=== PATIENT | female | born 1950 | race Caucasian/White ===

== ENCOUNTER 2024-09-25 20:06 | Inpatient (IN) | payer MEDICARE, BC ==
[2024-09-25] MEDS: Albuterol 0.083% 2.5 MG/3 ML Neb Soln NEB ONE (20:25)
[2024-09-25] MEDS ORDERED: Sodium Chloride 0.9% 10 ML Syringe FLUSH PRN (20:28)
[2024-09-25 20:46] LABS: MEAN PLATELET VOLUME 9.9 fL (6.0-10.0); PLATELET COUNT,PLT 286.0 K/uL (150-500); RED BLOOD CELL COUNT 3.61 M/uL (3.80-5.80); RED CELL DISTRIBUTION WIDTH 12.4 % (11.0-16.0); WHITE BLOOD CELL COUNT,WBC 11.2 K/uL (4.0-11.0)
[2024-09-25 21:10] LABS: BLOOD UREA NITROGEN,BUN 17.0 mg/dL (8-26); CARBON DIOXIDE,CO2 28.1 mmol/L (21.0-32.0); CREATININE 0.79 mg/dL (0.55-1.02); EST CRCL DRUG DOSING (CG) 56.4 mL/min; ESTIMATED GFR 80.0 mL/min (>60); GLUCOSE RANDOM 110.0 mg/dL (74-100); POTASSIUM,K 4.6 mmol/L (3.5-5.1); PRO B-TYPE NATRIUR PEPT,BNPPRO 1441.0 pg/mL (0-125); SODIUM,NA 124.0 mmol/L (136-145); TROPONIN I HIGH SENSITIVITY 5.3 pg/ml (<=60.4)
[2024-09-25 21:12] LABS: CHLORIDE,CL 87.0 mmol/L (98-107)
[2024-09-25] MEDS: Magnesium Sulfat/D5W 1GM/100ML 1 GM in Premix Bag 1 BAG IV ONE (21:41)
[2024-09-25 23:11] LABS: BLOOD UREA NITROGEN,BUN 17.0 mg/dL (8-26); CARBON DIOXIDE,CO2 24.4 mmol/L (21.0-32.0); CREATININE 0.79 mg/dL (0.55-1.02); EST CRCL DRUG DOSING (CG) 56.4 mL/min; ESTIMATED GFR 80.0 mL/min (>60); GLUCOSE RANDOM 126.0 mg/dL (74-100); POTASSIUM,K 4.4 mmol/L (3.5-5.1); SODIUM,NA 125.0 mmol/L (136-145)
[2024-09-25 23:13] LABS: CHLORIDE,CL 89.0 mmol/L (98-107)
[2024-09-26] MEDS: [UNRECOGNIZED DRUG - OTHER] IH SCH (07:43)
[2024-09-26] MEDS: TIOTROPIUM BR IH SCH (07:43)
[2024-09-26] MEDS: OLODATEROL HCL IH SCH (07:43)
[2024-09-26 08:40] LABS: BLOOD UREA NITROGEN,BUN 11.0 mg/dL (8-26); CARBON DIOXIDE,CO2 26.2 mmol/L (21.0-32.0); CHLORIDE,CL 92.0 mmol/L (98-107); CREATININE 0.64 mg/dL (0.55-1.02); EST CRCL DRUG DOSING (CG) 68.98 mL/min; ESTIMATED GFR 94.0 mL/min (>60); GLUCOSE RANDOM 117.0 mg/dL (74-100); POTASSIUM,K 3.9 mmol/L (3.5-5.1); SODIUM,NA 128.0 mmol/L (136-145)
[2024-09-26] MEDS: Melatonin 10 MG Cap PO SCH (19:10)
[2024-09-27 09:43] LABS: MEAN PLATELET VOLUME 9.8 fL (6.0-10.0); PLATELET COUNT,PLT 298.0 K/uL (150-500); RED BLOOD CELL COUNT 3.34 M/uL (3.80-5.80); RED CELL DISTRIBUTION WIDTH 13.0 % (11.0-16.0); WHITE BLOOD CELL COUNT,WBC 8.9 K/uL (4.0-11.0)
[2024-09-27 09:58] LABS: BLOOD UREA NITROGEN,BUN 3.0 mg/dL (8-26); CARBON DIOXIDE,CO2 30.3 mmol/L (21.0-32.0); CHLORIDE,CL 98.0 mmol/L (98-107); CREATININE 0.67 mg/dL (0.55-1.02); EST CRCL DRUG DOSING (CG) 65.9 mL/min; ESTIMATED GFR 93.0 mL/min (>60); GLUCOSE RANDOM 140.0 mg/dL (74-100); POTASSIUM,K 4.2 mmol/L (3.5-5.1); SODIUM,NA 134.0 mmol/L (136-145)
[2024-09-27] MEDS: Tiotropium Bromide 4 GM Inhalation Spray (2.5mcg/1 dose; 10 doses) INH SCH (11:37)
[2024-09-27] MEDS: Arformoterol 15 MCG/2 ML Neb Soln INH SCH (11:38)
== END 2024-09-28 14:36 | disposition home or self-care (01) | DRG 194 ==
LOC: LB.ED 20:06 → UNDOADMIN 20:10 → LB.MS 20:10
PROVIDERS: ADMIT Surgery; ATTEND Surgery
DX: J18.9 Pneumonia, unspecified organism (principal); E87.1 Hypo-osmolality and hyponatremia; J44.0 Chronic obstructive pulmonary disease with (acute) lower respiratory infection; J44.1 Chronic obstructive pulmonary disease with (acute) exacerbation; Z79.51 Long term (current) use of inhaled steroids; H54.7 Unspecified visual loss; M19.90 Unspecified osteoarthritis, unspecified site; E87.6 Hypokalemia; E83.42 Hypomagnesemia; E87.8 Other disorders of electrolyte and fluid balance, not elsewhere classified; I10 Essential (primary) hypertension; M81.0 Age-related osteoporosis without current pathological fracture; Z85.3 Personal history of malignant neoplasm of breast; Z98.49 Cataract extraction status, unspecified eye; Z98.890 Other specified postprocedural states; Z79.899 Other long term (current) drug therapy; Z87.891 Personal history of nicotine dependence; Z96.619 Presence of unspecified artificial shoulder joint; Z96.659 Presence of unspecified artificial knee joint
CPT/HCPCS: 36415; 71045; 80048; 83735; 83880; 84484; 85027; 94640; 96360; 96365; 96375; 99285-25; A9270-GY; J0696; J1650; J3475; J7030; J7512; J7605

== ENCOUNTER 2024-10-11 14:45 | Emergency (ER) | payer MEDICARE, BC ==
[2024-10-11 15:22] LABS: BASOPHILS ABSOLUTE AUTO 0.02 K/uL (0.02-0.10); BASOPHILS PERCENT AUTO 0.2 % (0.0-0.5); EOSINOPHILS ABSOLUTE AUTO 0.13 K/uL (0.04-0.40); EOSINOPHILS PERCENT AUTO 1.5 % (1.0-5.0); LYMPHOCYTES ABSOLUTE AUTO 0.83 K/uL (1.50-4.00); LYMPHOCYTES PERCENT AUTO 9.9 % (20.0-40.0); MEAN PLATELET VOLUME 10.5 fL (6.0-10.0); MONOCYTES ABSOLUTE AUTO 1.19 K/uL (0.20-0.80); MONOCYTES PERCENT AUTO 14.1 % (3.0-10.0); NEUTROPHILS ABSOLUTE AUTO 6.24 K/uL (2.00-7.50); NEUTROPHILS PERCENT AUTO 74.3 % (45.0-70.0); PLATELET COUNT,PLT 350 K/uL (150-500); RED BLOOD CELL COUNT 3.65 M/uL (3.80-5.80); RED CELL DISTRIBUTION WIDTH 13.2 % (11.0-16.0); WHITE BLOOD CELL COUNT,WBC 8.4 K/uL (4.0-11.0)
[2024-10-11 15:41] LABS: A/G RATIO 0.7 (0.8-2.0); BILIRUBIN TOTAL 0.3 mg/dL (0.0-1.0); BLOOD UREA NITROGEN,BUN 49.0 mg/dL (8-26); CARBON DIOXIDE,CO2 24.8 mmol/L (21.0-32.0); CHLORIDE,CL 95.0 mmol/L (98-107); CREATININE 1.29 mg/dL (0.55-1.02); EST CRCL DRUG DOSING (CG) 33.37 mL/min; ESTIMATED GFR 44.0 mL/min (>60); GLUCOSE RANDOM 148.0 mg/dL (74-100); POTASSIUM,K 4.3 mmol/L (3.5-5.1); PROTEIN TOTAL,TP 7.3 g/dL (6.4-8.2); SODIUM,NA 130.0 mmol/L (136-145)
[2024-10-11 16:00] LABS: ALANINE AMINOTRANSFERASE,ALT 17.0 U/L (12-78); ASPARTATE AMNIOTRANSFERASE,AST 14.0 U/L (15-37)
[2024-10-11 17:04] VITALS: BP 112/68; PULSE 98
== END 2024-10-11 16:54 | disposition home or self-care (01) ==
LOC: LB.ED 14:45
DX: E86.0 Dehydration (principal); I10 Essential (primary) hypertension; J44.9 Chronic obstructive pulmonary disease, unspecified; Z87.891 Personal history of nicotine dependence; Z79.51 Long term (current) use of inhaled steroids; Z79.899 Other long term (current) drug therapy
CPT/HCPCS: 36415; 80053; 85025; 96360; 96361; 99283; 99284-25; J7030; J7040

== ENCOUNTER 2024-10-26 12:12 | Inpatient (IN) | payer MEDICARE, BC ==
[2024-10-26] MEDS ORDERED: Sodium Chloride 0.9% 10 ML Syringe FLUSH PRN (12:44)
[2024-10-26 13:02] LABS: MEAN PLATELET VOLUME 9.9 fL (6.0-10.0); PLATELET COUNT,PLT 355.0 K/uL (150-500); RED BLOOD CELL COUNT 3.53 M/uL (3.80-5.80); RED CELL DISTRIBUTION WIDTH 14.8 % (11.0-16.0)
[2024-10-26 13:09] LABS: WHITE BLOOD CELL COUNT,WBC 23.3 K/uL (4.0-11.0)
[2024-10-26 13:31] LABS: BLOOD UREA NITROGEN,BUN 18 mg/dL (8-26); CARBON DIOXIDE,CO2 26.0 mmol/L (21.0-32.0); CHLORIDE,CL 100 mmol/L (98-107); CREATININE 1.15 mg/dL (0.55-1.02); EST CRCL DRUG DOSING (CG) 37.91 mL/min; ESTIMATED GFR 51 mL/min (>60); GLUCOSE RANDOM 127 mg/dL (74-100); PHOSPHORUS 3.5 mg/dL (2.5-4.9); POTASSIUM,K 4.5 mmol/L (3.5-5.1); SODIUM,NA 134 mmol/L (136-145); TROPONIN I HIGH SENSITIVITY 16.4 pg/ml (<=60.4)
[2024-10-26 13:37] LABS: PRO B-TYPE NATRIUR PEPT,BNPPRO > 35000 pg/mL (0-125)
[2024-10-26 13:48] LABS: LACTIC ACID 2.6 mmol/L (0.4-2.0)
[2024-10-26] MEDS: Sodium Chloride 0.9% 50 ML SDV FLUSH ONE (15:07)
[2024-10-26] MEDS: Iopamidol 755 Mg/ML 100 ML Bottle IV SCH (15:07)
[2024-10-26] MEDS: Magnesium Sulfate 2 GM/50 mL 2 GM in Premix Bag 1 BAG IV ONE (16:21)
[2024-10-26] MEDS: metroNIDAZOLE/Normal Saline 500 MG in Premix Bag 1 BAG IV ONE (16:21)
[2024-10-26] MEDS ORDERED: Acetaminophen 650 MG Tab.ER PO PRN (18:48)
[2024-10-26] MEDS ORDERED: Albuterol 0.083% 2.5 MG/3 ML Neb Soln INH PRN (20:36)
[2024-10-27] MEDS ORDERED: TIOTROPIUM BR IH SCH (08:00)
[2024-10-27] MEDS ORDERED: OLODATEROL HCL IH SCH (08:00)
[2024-10-27] MEDS ORDERED: Non-Formulary Medication 1 Each (Lactobacillus Acidophilus [Acidophilus] 1 EACH Capsule) PO SCH (08:00)
[2024-10-27] MEDS ORDERED: [UNRECOGNIZED DRUG - OTHER] IH SCH (08:00)
[2024-10-27 08:17] LABS: BASOPHILS ABSOLUTE AUTO 0.05 K/uL (0.02-0.10); BASOPHILS PERCENT AUTO 0.5 % (0.0-0.5); EOSINOPHILS ABSOLUTE AUTO 0.34 K/uL (0.04-0.40); EOSINOPHILS PERCENT AUTO 3.2 % (1.0-5.0); LYMPHOCYTES ABSOLUTE AUTO 1.11 K/uL (1.50-4.00); LYMPHOCYTES PERCENT AUTO 10.4 % (20.0-40.0); MEAN PLATELET VOLUME 10.1 fL (6.0-10.0); MONOCYTES ABSOLUTE AUTO 1.76 K/uL (0.20-0.80); MONOCYTES PERCENT AUTO 16.5 % (3.0-10.0); NEUTROPHILS ABSOLUTE AUTO 7.39 K/uL (2.00-7.50); NEUTROPHILS PERCENT AUTO 69.4 % (45.0-70.0); PLATELET COUNT,PLT 255 K/uL (150-500); RED BLOOD CELL COUNT 2.97 M/uL (3.80-5.80); RED CELL DISTRIBUTION WIDTH 14.9 % (11.0-16.0); WHITE BLOOD CELL COUNT,WBC 10.7 K/uL (4.0-11.0)
[2024-10-27 08:37] LABS: BLOOD UREA NITROGEN,BUN 17.0 mg/dL (8-26); CARBON DIOXIDE,CO2 23.7 mmol/L (21.0-32.0); CHLORIDE,CL 107.0 mmol/L (98-107); CREATININE 1.0 mg/dL (0.55-1.02); EST CRCL DRUG DOSING (CG) 43.6 mL/min; ESTIMATED GFR 60.0 mL/min (>60); GLUCOSE RANDOM 86.0 mg/dL (74-100); POTASSIUM,K 5.0 mmol/L (3.5-5.1); SODIUM,NA 138.0 mmol/L (136-145)
[2024-10-27] MEDS: Budesonide 0.5 MG/2 ML Neb Susp INH SCH (08:47)
[2024-10-27] MEDS: Lactobacillus Acidophilus/Lactobacillus Sporogenes (Probiotic) Tab PO SCH (12:11)
== END 2024-10-27 12:18 | disposition home or self-care (01) | DRG 641 ==
LOC: LB.ED 12:12 → UNDOADMIN 16:31 → LB.MS 16:31 → UNDOADMIN 19:04
PROVIDERS: ADMIT Surgery; ATTEND Surgery
DX: I48.91 Unspecified atrial fibrillation (principal); A04.71 Enterocolitis due to Clostridium difficile, recurrent; E86.0 Dehydration; H54.7 Unspecified visual loss; E83.42 Hypomagnesemia; A04.72 Enterocolitis due to Clostridium difficile, not specified as recurrent; M19.90 Unspecified osteoarthritis, unspecified site; M81.0 Age-related osteoporosis without current pathological fracture; I10 Essential (primary) hypertension; Z96.659 Presence of unspecified artificial knee joint; Z96.619 Presence of unspecified artificial shoulder joint; Z85.3 Personal history of malignant neoplasm of breast; Z98.49 Cataract extraction status, unspecified eye; Z98.890 Other specified postprocedural states; Z79.52 Long term (current) use of systemic steroids; J44.9 Chronic obstructive pulmonary disease, unspecified; Z79.51 Long term (current) use of inhaled steroids; Z79.899 Other long term (current) drug therapy
CPT/HCPCS: 36415; 71045; 71275; 74177; 80048; 83605; 83735; 83880; 84100; 84484; 85025; 85027; 85379; 87040; 93005; 96361; 96365; 96366; 96368; 99223; 99239; 99285-25; A9270-GY; J1650; J1836; J3373; J3475; J3490; J7030; Q9967

== ENCOUNTER 2024-11-04 11:47 | Inpatient (IN) | payer MEDICARE, BC ==
[2024-11-04] MEDS ORDERED: Sodium Chloride 0.9% 10 ML Syringe FLUSH PRN ×2 (12:13→12:20)
[2024-11-04 12:39] LABS: BASOPHILS ABSOLUTE AUTO 0.04 K/uL (0.02-0.10); BASOPHILS PERCENT AUTO 0.4 % (0.0-0.5); EOSINOPHILS ABSOLUTE AUTO 0.34 K/uL (0.04-0.40); EOSINOPHILS PERCENT AUTO 3.3 % (1.0-5.0); LYMPHOCYTES ABSOLUTE AUTO 1.03 K/uL (1.50-4.00); LYMPHOCYTES PERCENT AUTO 10.0 % (20.0-40.0); MEAN PLATELET VOLUME 9.4 fL (6.0-10.0); MONOCYTES ABSOLUTE AUTO 0.55 K/uL (0.20-0.80); MONOCYTES PERCENT AUTO 5.3 % (3.0-10.0); NEUTROPHILS ABSOLUTE AUTO 8.35 K/uL (2.00-7.50); NEUTROPHILS PERCENT AUTO 81.0 % (45.0-70.0); PLATELET COUNT,PLT 331 K/uL (150-500); RED BLOOD CELL COUNT 3.14 M/uL (3.80-5.80); RED CELL DISTRIBUTION WIDTH 15.2 % (11.0-16.0); WHITE BLOOD CELL COUNT,WBC 10.3 K/uL (4.0-11.0)
[2024-11-04 12:59] LABS: A/G RATIO 0.9 (0.8-2.0); ALANINE AMINOTRANSFERASE,ALT 18.0 U/L (12-78); ASPARTATE AMNIOTRANSFERASE,AST 13.0 U/L (15-37); BILIRUBIN TOTAL 0.4 mg/dL (0.0-1.0); BLOOD UREA NITROGEN,BUN 11.0 mg/dL (8-26); CARBON DIOXIDE,CO2 32.6 mmol/L (21.0-32.0); CHLORIDE,CL 97.0 mmol/L (98-107); CREATININE 0.81 mg/dL (0.55-1.02); EST CRCL DRUG DOSING (CG) 54.21 mL/min; ESTIMATED GFR 77.0 mL/min (>60); GLUCOSE RANDOM 142.0 mg/dL (74-100); POTASSIUM,K 5.3 mmol/L (3.5-5.1); PROTEIN TOTAL,TP 6.9 g/dL (6.4-8.2); SODIUM,NA 130.0 mmol/L (136-145); TROPONIN I HIGH SENSITIVITY 34.1 pg/ml (<=60.4)
[2024-11-04 13:03] LABS: PRO B-TYPE NATRIUR PEPT,BNPPRO 33775.0 pg/mL (0-125)
[2024-11-04] MEDS: Albuterol 0.083% 2.5 MG/3 ML Neb Soln NEB ONE (13:08)
[2024-11-04] MEDS: LORazepam 2 MG/ML SDV IVPUSH ONE (13:14)
[2024-11-04] MEDS: Budesonide 0.5 MG/2 ML Neb Susp NEB ONE (13:17)
[2024-11-04] MEDS ORDERED: Albuterol 0.083% 2.5 MG/3 ML Neb Soln NEB SCH (14:00)
[2024-11-04] MEDS ORDERED: Non-Formulary Medication 1 Each (Lactobacillus Acidophilus [Acidophilus] 1 EACH Capsule) PO SCH (14:00)
[2024-11-04] MEDS: Lactobacillus Acidophilus/Lactobacillus Sporogenes (Probiotic) Tab PO SCH (14:35)
[2024-11-04] MEDS: VANCOMYCIN 125 MG PO SCH (16:02)
[2024-11-04] MEDS: Albuterol 0.083% 2.5 MG/3 ML Neb Soln NEB SCH (16:02)
[2024-11-04] MEDS: Melatonin 10 MG Cap PO SCH (19:13)
[2024-11-04] MEDS: Furosemide 40 MG/4 ML VIAL IVPUSH ONE (22:23)
[2024-11-04] MEDS: methylPREDNISolone Sodium Succinate 40 MG/1 ML SDV IVPUSH ONE (22:24)
[2024-11-05] MEDS: Metoprolol Tartrate 5 MG/5 ML SDV IVPUSH ONE (00:38)
[2024-11-05 00:43] LABS: O2 SATURATION ARTERIAL 99.6 % (95-98); PCO2 ARTERIAL 155.8 mmHg (35-45); PO2 ARTERIAL 312.1 mmHg (80-105)
[2024-11-05 00:44] LABS: BASE EXCESS ARTERIAL 4.1 (-2-2); BICARBONATE,ARTERIAL 35.8 mmol/L (22-26)
[2024-11-05 01:46] LABS: BASE EXCESS ARTERIAL 5.4 (-2-2); BICARBONATE,ARTERIAL 35.4 mmol/L (22-26); O2 SATURATION ARTERIAL 91.5 % (95-98); PO2 ARTERIAL 91.8 mmHg (80-105)
[2024-11-05 01:47] LABS: PCO2 ARTERIAL 119.2 mmHg (35-45)
[2024-11-05 07:45] LABS: BASE EXCESS ARTERIAL 10 (-2-2); BICARBONATE,ARTERIAL 36.2 mmol/L (22-26); O2 SATURATION ARTERIAL 92.5 % (95-98); PO2 ARTERIAL 74.3 mmHg (80-105)
[2024-11-05 07:46] LABS: PCO2 ARTERIAL 70.8 mmHg (35-45)
[2024-11-05] MEDS ORDERED: OLODATEROL INH SCH ×2 (08:00)
[2024-11-05] MEDS ORDERED: TIOTROPIUM INH SCH ×2 (08:00)
[2024-11-05 08:45] LABS: BLOOD UREA NITROGEN,BUN 11.0 mg/dL (8-26); CHLORIDE,CL 92.0 mmol/L (98-107); CREATININE 0.72 mg/dL (0.55-1.02); EST CRCL DRUG DOSING (CG) 60.99 mL/min; ESTIMATED GFR 89.0 mL/min (>60); GLUCOSE RANDOM 131.0 mg/dL (74-100); POTASSIUM,K 4.9 mmol/L (3.5-5.1); SODIUM,NA 131.0 mmol/L (136-145)
[2024-11-05 08:59] LABS: CARBON DIOXIDE,CO2 33.6 mmol/L (21.0-32.0)
[2024-11-05 09:29] LABS: PRO B-TYPE NATRIUR PEPT,BNPPRO 48520.0 pg/mL (0-125)
[2024-11-05 11:10] LABS: O2 SATURATION ARTERIAL 94.4 % (95-98); PO2 ARTERIAL 81.7 mmHg (80-105)
[2024-11-05 11:11] LABS: BASE EXCESS ARTERIAL 10.1 (-2-2); BICARBONATE,ARTERIAL 36.2 mmol/L (22-26); PCO2 ARTERIAL 69.5 mmHg (35-45)
[2024-11-05] MEDS: Budesonide 0.5 MG/2 ML Neb Susp NEB SCH (15:44)
[2024-11-05] MEDS: methylPREDNISolone Sodium Succinate 40 MG/1 ML SDV IVPUSH SCH (15:54)
[2024-11-05 17:17] LABS: BASE EXCESS ARTERIAL 9.8 (-2-2); BICARBONATE,ARTERIAL 36.1 mmol/L (22-26); O2 SATURATION ARTERIAL 93.7 % (95-98); PO2 ARTERIAL 80 mmHg (80-105)
[2024-11-05 17:18] LABS: PCO2 ARTERIAL 72.6 mmHg (35-45)
[2024-11-05 19:49] LABS: BASE EXCESS ARTERIAL 15.1 (-2-2); BICARBONATE,ARTERIAL 40.4 mmol/L (22-26); O2 SATURATION ARTERIAL 88.6 % (95-98); PO2 ARTERIAL 60.3 mmHg (80-105)
[2024-11-05 19:50] LABS: PCO2 ARTERIAL 69.7 mmHg (35-45)
[2024-11-05 21:59] LABS: BASE EXCESS ARTERIAL 17.3 (-2-2); BICARBONATE,ARTERIAL 41.5 mmol/L (22-26); O2 SATURATION ARTERIAL 90.8 % (95-98); PO2 ARTERIAL 60.9 mmHg (80-105)
[2024-11-05 22:00] LABS: PCO2 ARTERIAL 61.3 mmHg (35-45)
[2024-11-05 22:03] LABS: BLOOD UREA NITROGEN,BUN 13.0 mg/dL (8-26); CARBON DIOXIDE,CO2 38.4 mmol/L (21.0-32.0); CREATININE 0.71 mg/dL (0.55-1.02); EST CRCL DRUG DOSING (CG) 60.04 mL/min; ESTIMATED GFR 90.0 mL/min (>60); GLUCOSE RANDOM 136.0 mg/dL (74-100); POTASSIUM,K 3.7 mmol/L (3.5-5.1); SODIUM,NA 133.0 mmol/L (136-145)
[2024-11-05 22:05] LABS: CHLORIDE,CL 88.0 mmol/L (98-107)
[2024-11-06] MEDS ORDERED: GI Cocktail Oral Solution 30 ML PO ONE (06:07)
[2024-11-06 08:31] LABS: BASE EXCESS ARTERIAL 15.8 (-2-2); BICARBONATE,ARTERIAL 38.4 mmol/L (22-26); O2 SATURATION ARTERIAL 89.9 % (95-98); PCO2 ARTERIAL 45.5 mmHg (35-45)
[2024-11-06 08:32] LABS: PO2 ARTERIAL 52.4 mmHg (80-105)
[2024-11-06 08:42] LABS: BLOOD UREA NITROGEN,BUN 14.0 mg/dL (8-26); CARBON DIOXIDE,CO2 43.7 mmol/L (21.0-32.0); CREATININE 0.74 mg/dL (0.55-1.02); EST CRCL DRUG DOSING (CG) 57.6 mL/min; ESTIMATED GFR 86.0 mL/min (>60); GLUCOSE RANDOM 108.0 mg/dL (74-100); POTASSIUM,K 3.7 mmol/L (3.5-5.1); SODIUM,NA 134.0 mmol/L (136-145)
[2024-11-06 08:47] LABS: CHLORIDE,CL 86.0 mmol/L (98-107)
[2024-11-06 09:24] LABS: PRO B-TYPE NATRIUR PEPT,BNPPRO 41520.0 pg/mL (0-125)
[2024-11-06] MEDS: Magnesium Sulfat/D5W 1GM/100ML 1 GM in Premix Bag 1 BAG IV ONE (09:27)
== END 2024-11-06 11:37 | DRG 292 ==
LOC: LB.ED 11:47 → LB.MS 13:44 → UNDOADMIN 13:44 → LB.MS 11-05 00:15 → UNDOADMIN 11-05 01:51
PROVIDERS: ADMIT Surgery; ATTEND Surgery
PROC: 4A133R1 Monitoring of Arterial Saturation, Peripheral, Percutaneous Approach (ICD-10-PCS; principal; 2024-11-04)
PROC: 0T9B70Z Drainage of Bladder with Drainage Device, Via Natural or Artificial Opening (ICD-10-PCS; 2024-11-04)
PROC: 5A09357 Assistance with Respiratory Ventilation, Less than 24 Consecutive Hours, Continuous Positive Airway Pressure (ICD-10-PCS; 2024-11-04)
DX: I11.0 Hypertensive heart disease with heart failure (principal); E87.4 Mixed disorder of acid-base balance; J44.1 Chronic obstructive pulmonary disease with (acute) exacerbation; I50.9 Heart failure, unspecified; H54.7 Unspecified visual loss; M19.90 Unspecified osteoarthritis, unspecified site; M81.0 Age-related osteoporosis without current pathological fracture; F41.9 Anxiety disorder, unspecified; F32.A Depression, unspecified; R09.02 Hypoxemia; I48.91 Unspecified atrial fibrillation; Z96.659 Presence of unspecified artificial knee joint; Z96.619 Presence of unspecified artificial shoulder joint; Z85.3 Personal history of malignant neoplasm of breast; Z87.891 Personal history of nicotine dependence; Z98.49 Cataract extraction status, unspecified eye; Z98.890 Other specified postprocedural states; Z99.81 Dependence on supplemental oxygen; Z79.82 Long term (current) use of aspirin; I10 Essential (primary) hypertension; Z79.899 Other long term (current) drug therapy
CPT/HCPCS: 36415; 36600; 51702; 71045; 80048; 80053; 82803; 83735; 83880; 84484; 85025; 85379; 86140; 93005; 93010; 94640; 94660; 96374; 99223; 99238; 99285; 99285-25; A9270-GY; J0282; J1650; J1938; J1939; J2060; J2270; J2919; J3475; J3490; J7060